=== PATIENT | female | born 1965 | race Caucasian/White ===

== ENCOUNTER 2016-05-04 07:01 | Day surgery (SDC) | payer OTHER ==
[~2016-05-04] VITALS: Ht 170.2 cm; Wt 93.9 kg
[~2016-05-04 07:01] MED LIST: ALEVE220 MG PO; AMLODIPINE BESYL5 MG PO; AUGMENTIN875 MG PO; BACTRIM,SEPT1 TABLET PO; BENADRYL ALLERG25 MG PO; BENADRYL ITCH28.3 GM TP; BENADRYL25 MG PO; BENZEPRO100 GM TP; CIPRO500 MG PO; CITRATE OF MAG296 ML PO; CLARITIN,ALAVAR10 MG PO; COLACE100 MG PO; DELZICOL400 MG PO; DICYCLOMINE HCL20 MG PO; DILAUDID2 MG PO; FLAGYL500 MG PO; FLEXERIL10 MG PO; IBUPROFEN800 MG PO; IXEKIZUMAB; IXEKIZUMAB SQ; KEFLEX500 MG PO; LORADAMED10 MG PO; LORATADINE10 M2 PO; MACROBID100 MG PO; MIRALAX17 GM PO; MOTRIN800 MG PO; MYCOSTATIN 100,60 ML PO; MYCOSTATIN1 APPLICAT TP; NO MEDS; NORCO 5/3251 TABLET PO; OXAYDO5 MG PO; PENTASA250 MG PO; POLYETHYLENE GL17 GM PO; PREDNISONE20 MG PO; PRILOSEC20 MG PO; RANITIDINE HCL150 MG PO; ROSADAN45 G1 VG; TALTZ AUTO80 MG/1 M1 SC; TYLENOL EXTRA500 MG PO; TYLENOL PM1 CAPLET PO; ZANTAC150 MG PO; ZOFRAN4 MG PO; [UNRECOGNIZED DRUG - OTHER] TP; [UNRECOGNIZED DRUG - OTHER] TP; [UNRECOGNIZED DRUG - OTHER] TP
== END 2016-05-04 09:00 | disposition home or self-care (01) ==
LOC: PAIN 07:01 → SDC 07:30 → PAIN 07:30 → SDC 07:45 → PAIN 09:00
PROC: 3E0S3BZ Introduction of Anesthetic Agent into Epidural Space, Percutaneous Approach (ICD-10-PCS; principal; 2016-05-04)
DX: M54.16 Radiculopathy, lumbar region (principal); M47.896 Other spondylosis, lumbar region; M53.3 Sacrococcygeal disorders, not elsewhere classified; R73.09 Other abnormal glucose; F41.1 Generalized anxiety disorder
CPT/HCPCS: J1100; J2405

== ENCOUNTER 2016-05-30 07:09 | Day surgery (SDC) | payer OTHER ==
[~2016-05-30] VITALS: Ht 170.2 cm; Wt 93.9 kg
== END 2016-05-30 09:05 | disposition home or self-care (01) ==
LOC: PAIN 07:09 → SDC 07:30 → PAIN 07:30
PROC: 3E0S33Z Introduction of Anti-inflammatory into Epidural Space, Percutaneous Approach (ICD-10-PCS; principal; 2016-05-30)
DX: M54.16 Radiculopathy, lumbar region (principal); F41.9 Anxiety disorder, unspecified; K21.9 Gastro-esophageal reflux disease without esophagitis; Z88.8 Allergy status to other drugs, medicaments and biological substances
CPT/HCPCS: J1100; J2250; J2405; J3010

== ENCOUNTER 2016-11-03 17:08 | Inpatient (IN) | payer OTHER ==
[~2016-11-03] VITALS: Ht 170.2 cm; Wt 82.5 kg
[2016-11-03 19:39] LABS: HEMATOCRIT 36.5 % (36.0-46.0); MCH 27.6 PG (29.0-34.0); MCHC 32.1 G/DL (30.0-36.0); MEAN PLAT.VOLUME 9.3 uM^3 (9.5-12.4); PLATELET COUNT 449 K/uL (156-360); RBC DIS.WIDTH-CV 13.6 % (11.8-14.6); RBC DIS.WIDTH-SD 43.2 % (39-53); RED BLOOD COUNT 4.24 M/uL (3.80-5.20); WHITE BLOOD COUNT 12.5 K/uL (4.1-10.2)
[2016-11-03 19:43] LABS: MCV 86.1 FL (83-99)
[2016-11-03 19:49] LABS: CHLORIDE 100 mEq/L (99-109); POTASSIUM 3.5 mEq/L (3.7-5.4); SODIUM 136 mEq/L (136-147)
[2016-11-03 19:51] LABS: GLUCOSE 111 mg/dL (70-99)
[2016-11-03 19:52] LABS: ANION GAP 9 MEQ/L (2-14)
[2016-11-03 19:53] LABS: TOTAL BILIRUBIN 0.3 mg/dL (0.0-1.0)
[2016-11-03 19:54] LABS: ALKALINE PHOSPHATASE 63 IU/L (3-129)
[2016-11-03 19:55] LABS: GFR ESTIMATE (CALCULATED) > 59 mL/min/
[2016-11-03 19:56] LABS: UREA NITROGEN (BUN) 10 mg/dL (9-23)
[2016-11-03 19:58] LABS: LIPASE 13 U/L (1.0-51.0)
[2016-11-03 20:04] LABS: QUANTITATIVE HCG < 4.0 MIU/ML
[2016-11-03 21:06] LABS: ADD MIUA? YES; BILIRUBIN SMALL; BLOOD MODERATE; COLOR AMBER ((YELLOW)); GLUCOSE (STRIP) NEGATIVE; KETONES 20; LEUKOCYTES SMALL; NITRITE NEGATIVE; PROTEIN (STRIP) 30; SPECIFIC GRAVITY 1.025 (1.000-1.030)
[2016-11-03 21:31] LABS: RED BLOOD CELLS 0-5 /HPF (0-5)
[2016-11-03 21:32] LABS: BACTERIA RARE /HPF; EPITHELIAL CELLS 3+ /HPF; MUCUS 1+ /LPF; UCUL ADDED? YES
[2016-11-03] MEDS ORDERED: REGLAN5 MG PO (23:32)
[2016-11-04] VITALS (8 sets, daily range): BP systolic 111–143; BP diastolic 56–90
[2016-11-04] MEDS ORDERED: MESALAMINE1.2 GM PO (00:47)
[2016-11-04] MEDS ORDERED: AMOX TR-K CLV1 EAC3 PO (00:48)
[2016-11-04] MEDS ORDERED: METRONIDAZOLE500 MG PO (00:49)
[2016-11-04] MEDS ORDERED: ONDANSETRON HCL4 MG PO (00:50)
[2016-11-04] MEDS ORDERED: MELATONIN10 M1 PO (00:50)
[2016-11-04 08:47] LABS: HEMATOCRIT 34.2 % (36.0-46.0); MCH 28.1 PG (29.0-34.0); MCHC 32.2 G/DL (30.0-36.0); MCV 87.5 FL (83-99); MEAN PLAT.VOLUME 9.4 uM^3 (9.5-12.4); PLATELET COUNT 394 K/uL (156-360); RBC DIS.WIDTH-CV 13.8 % (11.8-14.6); RBC DIS.WIDTH-SD 45.1 % (39-53); RED BLOOD COUNT 3.91 M/uL (3.80-5.20); WHITE BLOOD COUNT 14.1 K/uL (4.1-10.2)
[2016-11-04 09:19] LABS: ANION GAP 7 MEQ/L (2-14); CHLORIDE 105 MEQ/L (99-109); POTASSIUM 3.4 MEQ/L (3.7-5.4); SAMPLE HEMOLYSIS CHECK 0; SAMPLE ICTERIC CHECK 0; SAMPLE LIPEMIA CHECK 0; SODIUM 140 MEQ/L (136-147)
[2016-11-04 09:24] LABS: GFR ESTIMATE (CALCULATED) > 59 mL/min/; GLUCOSE 92 mg/dL (70-99); UREA NITROGEN (BUN) 11 mg/dL (9-23)
[2016-11-04 11:33] LABS: C DIFF TOXIN NEGATIVE (NEGATIVE)
[2016-11-04 11:34] LABS: PROBE CHECK PASS; SPECIMEN PROCESSING CONTROL PASS
[2016-11-05 04:08] VITALS: BP 131/64
[2016-11-05 05:30] LABS: HEMATOCRIT 35.7 % (36.0-46.0); MCH 27.5 PG (29.0-34.0); MCHC 31.7 G/DL (30.0-36.0); MCV 86.9 FL (83-99); MEAN PLAT.VOLUME 9.4 uM^3 (9.5-12.4); PLATELET COUNT 364 K/uL (156-360); RBC DIS.WIDTH-CV 13.8 % (11.8-14.6); RBC DIS.WIDTH-SD 43.7 % (39-53); RED BLOOD COUNT 4.11 M/uL (3.80-5.20); WHITE BLOOD COUNT 12.6 K/uL (4.1-10.2)
[2016-11-05 06:13] LABS: ANION GAP 8 MEQ/L (2-14); CHLORIDE 105 MEQ/L (99-109); GFR ESTIMATE (CALCULATED) > 59 mL/min/; GLUCOSE 81 mg/dL (70-99); POTASSIUM 3.8 MEQ/L (3.7-5.4); SAMPLE HEMOLYSIS CHECK 0; SAMPLE ICTERIC CHECK 0; SAMPLE LIPEMIA CHECK 0; SODIUM 138 MEQ/L (136-147); UREA NITROGEN (BUN) 6 mg/dL (9-23)
[2016-11-05 08:46] LABS: POINT-OF-CARE METER ID UU13113717
[2016-11-05 09:03] VITALS: BP 129/71; BP 140/89
[2016-11-05 11:10] VITALS: BP 142/80
[2016-11-05 15:08] VITALS: BP 136/70
[2016-11-05 19:55] VITALS: BP 130/60
[2016-11-05 23:24] VITALS: BP 139/62
[2016-11-06 03:35] VITALS: BP 124/57
[2016-11-06 06:09] LABS: HEMATOCRIT 35.6 % (36.0-46.0); MCH 28.2 PG (29.0-34.0); MCHC 32.6 G/DL (30.0-36.0); MCV 86.6 FL (83-99); MEAN PLAT.VOLUME 9.4 uM^3 (9.5-12.4); PLATELET COUNT 411 K/uL (156-360); RED BLOOD COUNT 4.11 M/uL (3.80-5.20); WHITE BLOOD COUNT 11.9 K/uL (4.1-10.2)
[2016-11-06 07:40] VITALS: BP 160/72
[2016-11-06 16:16] VITALS: BP 148/65
[2016-11-06 19:35] VITALS: BP 121/55
[2016-11-06 23:34] VITALS: BP 125/58
[2016-11-07 03:21] VITALS: BP 134/60
[2016-11-07 08:23] VITALS: BP 118/55
[2016-11-07 11:48] VITALS: BP 126/60
[2016-11-07 16:03] VITALS: BP 132/67
[2016-11-07 19:52] VITALS: BP 139/64
[2016-11-07 23:37] VITALS: BP 133/57
[2016-11-08 03:20] VITALS: BP 115/61
[2016-11-08 06:53] LABS: HEMATOCRIT 31.9 % (36.0-46.0); MCH 28.4 PG (29.0-34.0); MCHC 33.2 G/DL (30.0-36.0); MCV 85.5 FL (83-99); MEAN PLAT.VOLUME 9.9 uM^3 (9.5-12.4); PLATELET COUNT 357 K/uL (156-360); RBC DIS.WIDTH-CV 14.1 % (11.8-14.6); RBC DIS.WIDTH-SD 43.8 % (39-53); RED BLOOD COUNT 3.73 M/uL (3.80-5.20); WHITE BLOOD COUNT 12.3 K/uL (4.1-10.2)
[2016-11-08 07:17] VITALS: BP 117/62
[2016-11-08 07:22] LABS: ANION GAP 5 MEQ/L (2-14); CHLORIDE 104 MEQ/L (99-109); GFR ESTIMATE (CALCULATED) > 59 mL/min/; GLUCOSE 104 mg/dL (70-99); POTASSIUM 3.1 MEQ/L (3.7-5.4); SAMPLE HEMOLYSIS CHECK 0; SAMPLE ICTERIC CHECK 0; SAMPLE LIPEMIA CHECK 0; SODIUM 139 MEQ/L (136-147); UREA NITROGEN (BUN) 4 mg/dL (9-23)
[2016-11-08 11:22] VITALS: BP 141/66
[2016-11-08 15:19] VITALS: BP 125/61
[2016-11-08 19:59] VITALS: BP 125/59
[2016-11-08 23:53] VITALS: BP 109/51
[2016-11-09] VITALS (7 sets, daily range): BP systolic 111–138; BP diastolic 57–78
[2016-11-09 09:55] LABS: ANION GAP 7 MEQ/L (2-14); CHLORIDE 104 MEQ/L (99-109); GFR ESTIMATE (CALCULATED) > 59 mL/min/; GLUCOSE 107 mg/dL (70-99); POTASSIUM 3.3 MEQ/L (3.7-5.4); SAMPLE HEMOLYSIS CHECK 0; SAMPLE ICTERIC CHECK 0; SAMPLE LIPEMIA CHECK 0; SODIUM 140 MEQ/L (136-147); UREA NITROGEN (BUN) 4 mg/dL (9-23)
[2016-11-09 10:49] LABS: HEMATOCRIT 34.7 % (36.0-46.0); MCHC 31.4 G/DL (30.0-36.0); MCV 86.1 FL (83-99); MEAN PLAT.VOLUME 9.7 uM^3 (9.5-12.4); PLATELET COUNT 447 K/uL (156-360); RBC DIS.WIDTH-CV 14.3 % (11.8-14.6); RBC DIS.WIDTH-SD 44.9 % (39-53); RED BLOOD COUNT 4.03 M/uL (3.80-5.20); WHITE BLOOD COUNT 12.1 K/uL (4.1-10.2)
[2016-11-09 19:19] LABS: BASOPHIL COUNT 0.1 K/uL (0-0.1); EOSINOPHIL (%) 0.5 % (0-5); EOSINOPHIL COUNT 0.1 K/uL (0-0.3); HEMATOCRIT 32.3 % (36.0-46.0); IMMATURE GRANULOCYTE (%) 0.9 % (0.0-0.7); IMMATURE GRANULOCYTE COUNT 0.2 K/uL; LYMPHOCYTE COUNT 1.7 K/uL (1.0-2.8); MCH 28.3 PG (29.0-34.0); MCHC 32.8 G/DL (30.0-36.0); MCV 86.4 FL (83-99); MEAN PLAT.VOLUME 9.7 uM^3 (9.5-12.4); MONOCYTE (%) 9.3 % (3-12); MONOCYTE COUNT 2.1 K/uL (0-0.8); NEUTROPHIL (%) 81.5 % (45-76); PLATELET COUNT 464 K/uL (156-360); RBC DIS.WIDTH-CV 14.5 % (11.8-14.6); RBC DIS.WIDTH-SD 45.8 % (39-53); RED BLOOD COUNT 3.74 M/uL (3.80-5.20)
[2016-11-09 19:29] LABS: CARBON DIOXIDE (BICARBONATE) 28.7 MEQ/L (20-31)
[2016-11-09 19:42] LABS: C DIFF TOXIN NEGATIVE (NEGATIVE)
[2016-11-09 19:52] LABS: PROBE CHECK PASS; SPECIMEN PROCESSING CONTROL PASS
[2016-11-09 20:08] LABS: ALKALINE PHOSPHATASE 40 IU/L (3-129); ANION GAP 9 MEQ/L (2-14); CHLORIDE 104 MEQ/L (99-109); GFR ESTIMATE (CALCULATED) > 59 mL/min/; GLUCOSE 117 mg/dL (70-99); POTASSIUM 3.2 MEQ/L (3.7-5.4); SAMPLE HEMOLYSIS CHECK 0; SAMPLE ICTERIC CHECK 0; SAMPLE LIPEMIA CHECK 0; SODIUM 139 MEQ/L (136-147); TOTAL BILIRUBIN 0.3 MG/DL (0.0-1.0); UREA NITROGEN (BUN) 4 mg/dL (9-23)
[2016-11-10 03:52] VITALS: BP 107/55
[2016-11-10 05:52] LABS: HEMATOCRIT 31.7 % (36.0-46.0); MCH 28.4 PG (29.0-34.0); MCHC 32.8 G/DL (30.0-36.0); MCV 86.6 FL (83-99); MEAN PLAT.VOLUME 9.9 uM^3 (9.5-12.4); PLATELET COUNT 424 K/uL (156-360); RBC DIS.WIDTH-CV 14.6 % (11.8-14.6); RBC DIS.WIDTH-SD 45.9 % (39-53); RED BLOOD COUNT 3.66 M/uL (3.80-5.20); WHITE BLOOD COUNT 13.7 K/uL (4.1-10.2)
[2016-11-10 06:14] LABS: ANION GAP 8 MEQ/L (2-14); CHLORIDE 106 MEQ/L (99-109); GFR ESTIMATE (CALCULATED) > 59 mL/min/; GLUCOSE 111 mg/dL (70-99); POTASSIUM 3.4 MEQ/L (3.7-5.4); SAMPLE HEMOLYSIS CHECK 0; SAMPLE ICTERIC CHECK 0; SAMPLE LIPEMIA CHECK 0; SODIUM 142 MEQ/L (136-147); UREA NITROGEN (BUN) 4 mg/dL (9-23)
[2016-11-10 08:10] VITALS: BP 115/65
[2016-11-10 12:47] VITALS: BP 120/68
[2016-11-10 14:29] LABS: ADD MIUA? YES; BILIRUBIN NEGATIVE; BLOOD SMALL; COLOR YELLOW ((YELLOW)); GLUCOSE (STRIP) NEGATIVE; KETONES NEGATIVE; LEUKOCYTES TRACE; NITRITE NEGATIVE; PROTEIN (STRIP) NEGATIVE; UROBILINOGEN 0.2 MG/DL (0.2-1.0)
[2016-11-10 14:31] LABS: SPECIFIC GRAVITY 1.094 (1.000-1.030)
[2016-11-10 14:40] LABS: BACTERIA RARE /HPF; EPITHELIAL CELLS 1+ /HPF; HYALINE CASTS 0-5 /LPF; MUCUS TRACE /LPF; UCUL ADDED? NO; WHITE BLOOD CELLS 0-5 /HPF (0-5)
[2016-11-10 16:25] VITALS: BP 107/56
[2016-11-10 20:03] VITALS: BP 155/69
[2016-11-10 23:48] VITALS: BP 156/72
[2016-11-11 03:41] VITALS: BP 132/70
[2016-11-11 05:26] LABS: EOSINOPHIL (%) 0 % (0-5); HEMATOCRIT 32.7 % (36.0-46.0); IMMATURE GRANULOCYTE COUNT 0.2 K/uL; INSTRUMENT ABS NEUTROPHIL CT 18.4 K/uL; LYMPHOCYTE COUNT 1.3 K/uL (1.0-2.8); MCH 27.6 PG (29.0-34.0); MCHC 32.4 G/DL (30.0-36.0); MCV 85.2 FL (83-99); MEAN PLAT.VOLUME 9.5 uM^3 (9.5-12.4); MONOCYTE (%) 2.2 % (3-12); MONOCYTE COUNT 0.5 K/uL (0-0.8); NEUTROPHIL (%) 90.6 % (45-76); NEUTROPHIL COUNT 18.4 K/uL (1.8-6.4); PLATELET COUNT 476 K/uL (156-360); RBC DIS.WIDTH-CV 14.6 % (11.8-14.6); RBC DIS.WIDTH-SD 44.9 % (39-53); RED BLOOD COUNT 3.84 M/uL (3.80-5.20); WHITE BLOOD COUNT 20.4 K/uL (4.1-10.2)
[2016-11-11 05:56] LABS: ALKALINE PHOSPHATASE 42 IU/L (3-129); ANION GAP 5 MEQ/L (2-14); CHLORIDE 107 MEQ/L (99-109); GFR ESTIMATE (CALCULATED) > 59 mL/min/; POTASSIUM 3.6 MEQ/L (3.7-5.4); SAMPLE HEMOLYSIS CHECK 0; SAMPLE ICTERIC CHECK 0; SAMPLE LIPEMIA CHECK 0; SODIUM 141 MEQ/L (136-147); TOTAL BILIRUBIN 0.3 MG/DL (0.0-1.0); UREA NITROGEN (BUN) 5 mg/dL (9-23)
[2016-11-11 05:58] LABS: GLUCOSE 173 mg/dL (70-99)
[2016-11-11 07:19] VITALS: BP 140/69
[2016-11-11 11:05] VITALS: BP 173/65
[2016-11-11 15:02] VITALS: BP 123/59
[2016-11-11 19:42] VITALS: BP 130/62
[2016-11-11 23:27] VITALS: BP 129/62
[2016-11-12 03:12] VITALS: BP 127/66
[2016-11-12 06:07] LABS: HEMATOCRIT 32.5 % (36.0-46.0); MCH 27.9 PG (29.0-34.0); MCHC 32.3 G/DL (30.0-36.0); MCV 86.4 FL (83-99); MEAN PLAT.VOLUME 9.9 uM^3 (9.5-12.4); PLATELET COUNT 558 K/uL (156-360); RBC DIS.WIDTH-CV 15.1 % (11.8-14.6); RBC DIS.WIDTH-SD 47.6 % (39-53); RED BLOOD COUNT 3.76 M/uL (3.80-5.20); WHITE BLOOD COUNT 16.5 K/uL (4.1-10.2)
[2016-11-12 06:42] LABS: ANION GAP 6 MEQ/L (2-14); CHLORIDE 108 MEQ/L (99-109); GFR ESTIMATE (CALCULATED) > 59 mL/min/; GLUCOSE 156 mg/dL (70-99); POTASSIUM 4.2 MEQ/L (3.7-5.4); SAMPLE HEMOLYSIS CHECK 0; SAMPLE ICTERIC CHECK 0; SAMPLE LIPEMIA CHECK 0; SODIUM 142 MEQ/L (136-147); UREA NITROGEN (BUN) 8 mg/dL (9-23)
[2016-11-12 08:03] VITALS: BP 119/56
[2016-11-12 16:22] VITALS: BP 122/59
[2016-11-12 23:36] VITALS: BP 134/61
[2016-11-13 07:40] VITALS: BP 173/74
[2016-11-13] MEDS ORDERED: MUCINEX600 MG PO (09:45)
[2016-11-13] MEDS ORDERED: PREDNISONE10 MG PO (09:49)
== END 2016-11-13 12:05 | disposition home or self-care (01) | DRG 386 ==
LOC: EME 17:08 → EDOF 11-04 00:31 → ENRESERV 11-04 00:34 → 5WEST 11-04 01:57 → 5SOUTH 11-04 01:59 → 5WEST 11-04 11:11 → 5SOUTH 11-04 11:11 → 5WEST 11-04 11:11 → 5SOUTH 11-04 11:11 → ENRESERV 11-04 11:14 → 5SOUTH 11-04 13:57
PROVIDERS: Emergency Medicine; Hospitalist; Internal Medicine; Internal Medicine Gastroenterology; Nurse Practitioner Adult Health; Physician Assistant Medical
PROC: 0DB68ZX Excision of Stomach, Via Natural or Artificial Opening Endoscopic, Diagnostic (ICD-10-PCS; principal; 2016-11-06)
DX: K51.80 Other ulcerative colitis without complications (principal); K50.10 Crohn's disease of large intestine without complications; K76.0 Fatty (change of) liver, not elsewhere classified; D62 Acute posthemorrhagic anemia; L40.50 Arthropathic psoriasis, unspecified; D50.0 Iron deficiency anemia secondary to blood loss (chronic); E11.9 Type 2 diabetes mellitus without complications; K52.3 Indeterminate colitis; E87.6 Hypokalemia; D72.829 Elevated white blood cell count, unspecified; K21.9 Gastro-esophageal reflux disease without esophagitis; G89.29 Other chronic pain; K59.00 Constipation, unspecified; K57.30 Diverticulosis of large intestine without perforation or abscess without bleeding; Z79.1 Long term (current) use of non-steroidal anti-inflammatories (NSAID); M54.10 Radiculopathy, site unspecified; Z82.49 Family history of ischemic heart disease and other diseases of the circulatory system; Z83.3 Family history of diabetes mellitus; K29.60 Other gastritis without bleeding; D35.02 Benign neoplasm of left adrenal gland; Z79.899 Other long term (current) drug therapy; K59.09 Other constipation; R09.81 Nasal congestion
CPT/HCPCS: 71010; 74000; 74176; 74177; 80048; 80053; 81003; 82803; 82948; 83605; 83690; 84702; 85025; 85027; 87040; 87045; 87046; 87086; 87493; 87506; 88305; 88342 TC; 99281; 99285; C9113; J1650; J2250; J2270; J2405; J2765; J2920; J3010; J3480; J7030; J7042; J7512; S0028; S0030

== ENCOUNTER → 2016-12-15 | Outpatient (CLI) | payer OTHER ==
[~2016-12-15] VITALS: Ht 170.2 cm; Wt 78.9 kg
[~2016-12-15] MED LIST changes: +AMOX TR-K CLV1 EAC3 PO; +BENTYL10 MG PO; +BUDESONIDE EC3 MG PO; +MELATONIN10 M1 PO; +MESALAMINE1.2 GM PO; +METRONIDAZOLE500 MG PO; +MUCINEX600 MG PO; +OMEPRAZOLE20 MG PO; +ONDANSETRON HCL4 MG PO; +PREDNISONE10 MG PO; +REGLAN5 MG PO
== END | disposition home or self-care (01) ==
LOC: AMB 07:30
PROC: 0DBP8ZX Excision of Rectum, Via Natural or Artificial Opening Endoscopic, Diagnostic (ICD-10-PCS; principal; 2016-12-15)
PROC: 0DBK8ZX Excision of Ascending Colon, Via Natural or Artificial Opening Endoscopic, Diagnostic (ICD-10-PCS; principal; 2016-12-15)
PROC: 0DBL8ZX Excision of Transverse Colon, Via Natural or Artificial Opening Endoscopic, Diagnostic (ICD-10-PCS; principal; 2016-12-15)
PROC: 0DBN8ZX Excision of Sigmoid Colon, Via Natural or Artificial Opening Endoscopic, Diagnostic (ICD-10-PCS; principal; 2016-12-15)
PROC: 0DBM8ZX Excision of Descending Colon, Via Natural or Artificial Opening Endoscopic, Diagnostic (ICD-10-PCS; principal; 2016-12-15)
DX: K52.9 Noninfective gastroenteritis and colitis, unspecified (principal); K57.30 Diverticulosis of large intestine without perforation or abscess without bleeding; K63.3 Ulcer of intestine; D12.3 Benign neoplasm of transverse colon; K59.09 Other constipation; E66.9 Obesity, unspecified; Z68.29 Body mass index [BMI] 29.0-29.9, adult; R73.03 Prediabetes; L40.50 Arthropathic psoriasis, unspecified; Z90.710 Acquired absence of both cervix and uterus; Z87.891 Personal history of nicotine dependence; Z81.1 Family history of alcohol abuse and dependence; Z83.79 Family history of other diseases of the digestive system; Z84.1 Family history of disorders of kidney and ureter; Z82.49 Family history of ischemic heart disease and other diseases of the circulatory system; Z88.8 Allergy status to other drugs, medicaments and biological substances
CPT/HCPCS: 88305; J1100; J2405

== ENCOUNTER → 2017-09-17 | Outpatient (CLI) | payer OTHER ==
[~2017-09-17] VITALS: Ht 170.2 cm; Wt 92.1 kg
[~2017-09-17] MED LIST changes: +ALEVE220 M2 PO; +ERGOCALCIF50000 UNIT PO; +HUMIRA40 MG/0.8 SC; +ZOFRAN8 MG PO; +[UNRECOGNIZED DRUG - OTHER] TP; +[UNRECOGNIZED DRUG - OTHER] TP
== END | disposition home or self-care (01) ==
LOC: AMB 11:55
DX: K52.9 Noninfective gastroenteritis and colitis, unspecified (principal); K29.80 Duodenitis without bleeding; K29.70 Gastritis, unspecified, without bleeding; K57.30 Diverticulosis of large intestine without perforation or abscess without bleeding; K64.8 Other hemorrhoids; K21.9 Gastro-esophageal reflux disease without esophagitis; Z87.891 Personal history of nicotine dependence; Z88.5 Allergy status to narcotic agent; Z88.1 Allergy status to other antibiotic agents
CPT/HCPCS: 88305; 88342 TC; J1100; J2250; J2405